=== PATIENT | male | born 1995 | race Caucasian/White ===

== ENCOUNTER 2019-02-12 16:16 | Emergency (ER) | payer BC, OTHER ==
[~2019-02-12] VITALS: Ht 188 cm; Wt 79.4 kg
[~2019-02-12 16:16] MED LIST: AUGMENTIN 875875 MG PO; CENTRUM COMPLE1 EACH PO; CHLORDIAZEPOXID25 M1 PO; MUCINEX TA600 MG/TA2 PO; PROAIR HFA8.5 GM INH
[2019-02-12 16:27] VITALS: BP 104/68
[2019-02-12] MEDS ORDERED: PREDNISONE 20 M20 MG PO (17:21)
[2019-02-12] MEDS ORDERED: BENADRYL25 MG PO (17:22)
[2019-02-12] MEDS ORDERED: KEFLEX500 M1 PO (17:22)
== END 2019-02-12 17:15 | disposition home or self-care (01) ==
LOC: ER 16:16
DX: T63.481A Toxic effect of venom of other arthropod, accidental (unintentional), initial encounter (principal); Q54.9 Hypospadias, unspecified; F98.8 Other specified behavioral and emotional disorders with onset usually occurring in childhood and adolescence; Z90.49 Acquired absence of other specified parts of digestive tract; Z87.891 Personal history of nicotine dependence; Y92.89 Other specified places as the place of occurrence of the external cause